=== PATIENT | female | born 1945 | race Caucasian/White ===

== ENCOUNTER 2024-02-11 15:15 | Emergency (ER) | payer OTHER, MEDICAID ==
[~2024-02-11] VITALS: Ht 162.6 cm; Wt 71.7 kg
[2024-02-11 15:24] VITALS: BP 152/72; TEMP 99.4; O2SAT 100
[2024-02-11] MEDS ORDERED: LIDOCAINE 1%-EPI 1:100,000 20 ML VIAL ONE (15:43)
[2024-02-11] MEDS ORDERED: IV NS 0.9% 250 ML IV ONE (16:31)
[2024-02-11 16:37] LABS: BASOPHILS % (AUTO) 0.4 % (0.0-2.0); EOSINOPHILS % (AUTO) 0.4 % (0.0-6.0); HEMATOCRIT 32 % (33-45); LYMPHOCYTES % (AUTO) 12.8 % (20.0-44.0); MEAN CORPUSCULAR HEMOGLOBIN 30 PG (26.0-33.0); MEAN CORPUSCULAR HGB CONC 34 g/dl (31.0-36.0); MEAN CORPUSCULAR VOLUME 88 fL (82-100); MONOCYTES # (AUTO) 0.8 K/uL (0.1-1.30); NEUTROPHILS # (AUTO) 5.9 K/uL (1.8-8.9); NEUTROPHILS % (AUTO) 76.4 % (43.0-81.0); PLATELET COUNT (AUTO) 392 K/uL (150-450); RED BLOOD CELL COUNT(AUTO) 3.66 MIL/uL (4.0-5.2); RED CELL DISTRIBUTION WIDTH 14.3 % (11.5-15.0); WHITE BLOOD COUNT (AUTO) 7.7 K/uL (4.3-11.0)
[2024-02-11] MEDS: IV NS 0.9% 1,000 ML BAG IV ONE (16:39)
[2024-02-11] MEDS: LIDOCAINE 1%-EPI 1:100,000 20 ML VIAL TP ONE (16:39)
[2024-02-11] MEDS ORDERED: IOHEXOL-300 10 ML VIAL IV ONE (16:40)
[2024-02-11] MEDS ORDERED: IOHEXOL-300 100 ML VIAL IV ONE (16:41)
[2024-02-11 16:45] LABS: CALCIUM, SERUM 8.8 mg/dL (8.5-10.1); CARBON DIOXIDE 29 mmol/L (21-32); CHLORIDE 93 mmol/L (98-107); CREATININE 1.1 mg/dL (0.6-1.3); GLUCOSE 158 mg/dL (74-106); POTASSIUM 3.9 mmol/L (3.5-5.1); SODIUM SERUM 130 mmol/L (136-145); UREA NITROGEN, BLOOD 22 mg/dL (7-18)
[2024-02-11] MEDS: CEFEPIME 1 GM in IV D5W 50 ML IV ONE (16:50)
[2024-02-11 16:52] LABS: ALANINE AMINOTRANSFERASE 100 U/L (12-78); ALBUMIN 1.9 g/dL (3.4-5.0); ALKALINE PHOSPHATASE 216 U/L (46-116); ASPARTATE AMINOTRANSFERASE 70 U/L (15-37); BILIRUBIN,DIRECT 0.3 mg/dL (0.0-0.2); BILIRUBIN,TOTAL 0.6 mg/dL (0.2-1.0); TOTAL PROTEIN, SERUM 7.5 g/dL (6.4-8.2)
[2024-02-11 16:57] LABS: LACTIC ACID 0.7 mmol/L (0.4-2.0)
[2024-02-11] MEDS: VANCOMYCIN 1 GM in IV D5W 250 ML IV ONE (17:00)
[2024-02-11] MEDS ORDERED: ENOX40DI SQ (17:10)
[2024-02-11] MEDS ORDERED: INSU100V39 SQ (17:10)
[2024-02-11] MEDS ORDERED: GABA300C PO (17:10)
[2024-02-11] MEDS ORDERED: CRAN425C6 PO (17:10)
[2024-02-11] MEDS ORDERED: DEXT33GE7 PO (17:10)
[2024-02-11] MEDS ORDERED: POLY17PO4 PO (17:10)
[2024-02-11] MEDS ORDERED: BUDE10.22 IH (17:10)
[2024-02-11] MEDS ORDERED: ATOR20TA PO (17:10)
[2024-02-11] MEDS ORDERED: ASCO500T10 PO (17:10)
[2024-02-11] MEDS ORDERED: DOCU100C36 PO (17:10)
[2024-02-11] MEDS ORDERED: MULT-213 PO (17:10)
[2024-02-11] MEDS ORDERED: VALS320T2 PO (17:10)
[2024-02-11] MEDS ORDERED: GLUC1KIT IM (17:10)
[2024-02-11] MEDS ORDERED: ACET325T53 PO (17:10)
[2024-02-11] MEDS ORDERED: MAGN400O6 PO (17:10)
[2024-02-11] MEDS ORDERED: DEXT15DR6 EACHEYE (17:10)
[2024-02-11] MEDS ORDERED: AMLO-213 PO (17:10)
[2024-02-11] MEDS ORDERED: IPRA3AMP23 IH (17:10)
[2024-02-11] MEDS ORDERED: TRAM50TA2 PO (17:10)
[2024-02-11] MEDS ORDERED: ACET-73 PO (17:10)
[2024-02-11] MEDS ORDERED: OXYC10TA49 PO (17:10)
[2024-02-11] MEDS ORDERED: ACET-637 PO (17:10)
[2024-02-11] MEDS ORDERED: PANT40TA49 PO (17:10)
[2024-02-11] MEDS ORDERED: METH500T6 PO (17:10)
[2024-02-11] MEDS ORDERED: SERT25TA PO (17:10)
[2024-02-11 17:19] LABS: INR 1.13 (0.91-1.10); PARTIAL THROMBOPLASTIN TIME 34.1 SEC (24.3-34.3); PROTHROMBIN TIME 11.9 SECS (9.2-11.1)
[2024-02-11] MEDS ORDERED: ONDANSETRON HCL/PF 4 MG/2 ML VIAL ONE (21:08)
[2024-02-11] MEDS ORDERED: MORPHINE SULFATE INJ 4 MG/ML DISP.SYRIN ONE (21:09)
[2024-02-11] MEDS: ONDANSETRON HCL/PF 4 MG/2 ML VIAL IVP ONE (21:10)
[2024-02-11] MEDS: MORPHINE SULFATE INJ 2 MG/ML DISP.SYRIN IV ONE (21:10)
== END 2024-02-11 23:00 | disposition short-term general hospital (02) ==
LOC: ER 15:39
DX: L03.115 Cellulitis of right lower limb (principal); M25.461 Effusion, right knee; I12.9 Hypertensive chronic kidney disease with stage 1 through stage 4 chronic kidney disease, or unspecified chronic kidney disease; E11.22 Type 2 diabetes mellitus with diabetic chronic kidney disease; N18.9 Chronic kidney disease, unspecified; K21.9 Gastro-esophageal reflux disease without esophagitis; Z88.8 Allergy status to other drugs, medicaments and biological substances; Z79.4 Long term (current) use of insulin; Z79.899 Other long term (current) drug therapy
CPT/HCPCS: 99291; 96365; 73701; 71045; 96375; 96367; 93005; 87070; 84145; 85025; 80048; 87040 ×2; 87086; 83605; 80076; 36415; 84484; 85730; J2270; J3370; J2405; J7060; J7030; J7050; J3490; J0692; Q9967; A4223